=== PATIENT | female | born 1955 | race Caucasian/White ===

== ENCOUNTER 2018-05-21 21:17 | Emergency (ER) | payer OTHER ==
[~2018-05-21] VITALS: Ht 165.1 cm; Wt 73.0 kg
[2018-05-21] MEDS ORDERED: MUPI1NAS (21:30)
[2018-05-21] MEDS ORDERED: ALBU90OI6 INH (21:30)
[2018-05-21] MEDS ORDERED: Bactrim 400-801 EACH PO (21:30)
[2018-05-21] MEDS ORDERED: CEPH500 PO (22:01)
== END 2018-05-21 22:15 | disposition home or self-care (01) ==
LOC: ER 21:17
DX: L03.114 Cellulitis of left upper limb (principal); Z79.899 Other long term (current) drug therapy
CPT/HCPCS: 99283